=== PATIENT | female | born 2005 | race Two or more races ===

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

== ENCOUNTER 2025-04-08 19:03 | Emergency (ER) | payer MEDICAID ==
[~2025-04-08] VITALS: Ht 147.3 cm; Wt 61.5 kg
[~2025-04-08 19:03] MED LIST changes: +PHEN0.2512 PR
[2025-04-08 19:35] VITALS: TEMP 98.8
[2025-04-08 20:08] LABS: Urine Amorphous Crystal FEW /hpf (None Seen); Urine Protein, UAD Negative (Negative)
[2025-04-08] MEDS ORDERED: DOXY100C79 PO (20:56)
--- NOTE | 2025-04-08 21:03 | ED.PDOC ---
General HPI Comments 20 year old female presents to ER with complaints of vaginal discharge x 2 days. Patient states she started experiencing yellow vaginal discharge with "vaginal irritation" 2 days ago that started 2 days after she had unprotected sex with her ex boyfriend. Denies any pain denies use of medications for current symptoms. Patient presents to ER ambulatory on arrival, steady gait, in no distress and denies any known STD hx for her or her ex boyfriend. Denies fever, body aches, chills, joint pain, rash/skin changes, abdominal/pelvic pain, back/flank pain, changes in urination or any further symptoms/complaints Chief Complaint: Vaginal Discharge Time Seen by MD: 19:18 Primary Care Provider: OOA Reviewed notes: Nurses Notes, Medications, Allergies Allergies: Coded Allergies: Azithromycin (Verified Allergy, Unknown, 02/14/20) Home Meds Active Scripts Doxycycline (Monohydrate) (Doxycycline) 100 Mg Cap, 100 MG PO BID for 7 Days, #14 CAP 0 Refills Prov:MACI COLLINS 04/08/25 Phenylephrine HCl (Topical) (Preparation H) 0.25 % Sup, 0.25 % DC QID PRN, #30 SUPP prn hemorrhoid pain Prov:JENNIFER RAMIREZ MD 12/18/24 Fluconazole (Diflucan) 150 Mg Tab, 1 TAB PO DAILY for 2 Days, #2 TAB 1 Refill Prov:DEBORAH WILDE ELECTROMECHANICAL TECHNOLOGIST 10/27/24 Metronidazole (Flagyl) 500 Mg Tab, 1 TAB PO BID for 7 Days, #14 TAB Prov:DEBORAH WILDEP 10/27/24 Cephalexin Monohydrate (Cephalexin) 500 Mg Cap, 1 CAP PO QID for 5 Days, #20 CAP 0 Refills Prov:KATLYN ZHONG NP 09/28/24 Mupirocin Calcium (Topical) (MUPIROCIN) 2 % Cre, 1 APPLIC EX BID for 7 Days, #30 GRAMS 0 Refills Prov:KATLYN ZHONG NP 09/28/24 Metronidazole (Flagyl) 500 Mg Tab, 1 TAB PO BID, #14 TAB Prov:NATE SALAS 07/18/24 Cephalexin (KEFLEX CAPSULE) 250 Mg Cp, 250 MG PO TID for 7 Days, #21 CAP Prov:HENRIQUE POWELL MD 06/17/24 Information Source: Patient Mode of Arrival: Ambulatory Past Medical History PAST MEDICAL HISTORY: Denies Surgical History: Denies all surgeries FIRER LOCOMOTIVE History: No Pertinent FIRER LOCOMOTIVE History Family History Family History: Unknown Social History Smoker: Non-Smoker Alcohol: Denies ETOH Use Drugs: Denies Drug Use Lives In: Home Constitutional: denies: chills, diaphoresis, fatigue, fever, malaise, sweats, weakness, others EENTM: denies: blurred vision, double vision, ear bleeding, ear discharge, ear drainage, ear pain, ear ringing, eye pain, eye redness, hearing loss, mouth pain, mouth swelling, nasal discharge, nose bleeding, nose congestion, nose pain, photophobia, tearing, throat pain, throat swelling, voice changes, others Respiratory: denies: cough, hemoptysis, orthopnea, SOB at rest, shortness of breath, SOB with excertion, stridor, wheezing, others Cardiovascular: denies: chest pain, dizzy spells, diaphoresis, Dyspnea on exertion, edema, irregular heart beat, left arm pain, lightheadedness, palpitations, PND, syncope, others Gastrointestinal: denies: abdomen distended, abdominal pain, blood streaked bowels, constipated, diarrhea, dysphagia, difficulty swallowing, hematemesis, melena, nausea, poor appetite, poor fluid intake, rectal bleeding, rectal pain, vomiting, others Genitourinary: reports: others (As stated in HPI) Neurological: denies: dizziness, fainting, headache, left sided numbness, left sided weakness, numbness, paresthesia, pre-existing deficit, right sided numbness, right sided weakness, seizure, speech problems, tingling, tremors, weakness, others Musculoskeletal: denies: back pain, gout, joint pain, joint swelling, muscle pain, muscle stiffness, neck pain, others Integumetry: denies: bruises, change in color, change in hair/nails, dryness, laceration, lesions, lumps, rash, wounds, others Allergic/Immunocompromised: denies: Difficulty Healing, Frequent Infections, Hives, Itching, others Hematologic/Lymphatic: denies: anemia, blood clots, easy bleeding, easy bruising, swollen glands, others Endocrine: denies: excessive hunger, excessive sweating, excessive thirst, excessive urination, flushing, intolerance to cold, intolerance to heat, unexplained weight gain, unexplained weight loss, others Psychiatric: denies: anxiety, bipolar disorder, depression, hopeless, panic disorder, schizophrenia, sleepless, suicidal, others Physical Exam General Appearance: No Apparent Distress HEENT: PERRL/EOMI Neck: Full Range of Motion, Non-Tender, Normal Respiratory: Chest Non-Tender, Lungs Clear, No Accessory Muscle Use, No Respiratory Distress, Normal Breath Sounds Cardiovascular: No Murmur, No Gallop, Regular Rate/Rhythm Breast Exam: Deferred Gastrointestinal: Non Tender, No Pulsatile Mass, Soft Genitalia: Deferred Pelvic: Other (Female coat tailor present-no vaginal discharge/skin changes kirti reciated. Unremarkable pelvic examination) Rectal: Deferred Extremities: Normal capillary refill, Normal range of motion Neurologic: Alert, chief security and safety officer II-XII nml as Tested, No Motor Deficits, Normal Affect, Normal Mood, No Sensory Deficits Cerebellar Function: Normal Reflexes: Normal Skin: Dry, Normal Color, Warm Lymphatic: No Adenopathy Was a procedure done? Was a procedure done?: No Sedation Sedation?: No Differential Diagnosis Kidney stone (Female): N/A Urinary Problem (Female): Intrauterine , Pyelonephritis, Urinary retention, Urolithiasis X-Ray, Labs, Meds, VS Vital Signs Date Time Temp Pulse Resp B/P (MAP) Pulse Ox O2 Delivery O2 Flow Rate FiO2 04/08/25 19:35 98.8 76 18 96/64 (75) 99 98.8 Lab Test 04/08/25 20:44 04/08/25 19:46 Range/Units Vaginal WBC (Wet Prep) Rare Vaginal RBC (Wet Prep) None seen Vaginal Epithelial Cells (Wet Prep) Few Vaginal Bacteria (Wet Prep) Few Vaginal Trichomonas (Wet Prep) Not present Vaginal Yeast (Wet Prep) None seen Vaginal Clue Cells (Wet Prep) None seen Urine Color Light-yellow Yellow Urine Clarity Turbid H Clear Urine pH 7.0 5.0-9.0 Urine Specific [place] 1.015 1.001-1.035 Urine Protein Negative Negative Urine Ketones Negative Negative Urine Blood Negative Negative /uL Urine Nitrite Negative Negative Urine Bilirubin Negative Negative Urine Urobilinogen Normal Negative mg/dL Urine Leukocyte Esterase Trace Negative /uL Urine RBC 2 0 - 4 /hpf Urine Microscopic WBC 2 0-5 /HPF Urine Squamous Epithelial Cells Few <5 /hpf Urine Amorphous Crystals Few None Seen /hpf Urine Bacteria None seen None Seen /hpf Urine Glucose Normal Normal mg/dL Urine Test Negative Negative Chlamydia trachomatis ([facility]) Pending Neisseria gonorrhoeae ([facility]) Pending Urinalysis reviewed-urine leukocyte esterase trace, remainder urinalysis reviewed without any significant abnormalities Urine reviewed-negative Wet mount reviewed without any significant abnormalities Rocephin 1 g IM ordered Advised to drink plenty of fluids Safe sex practices discussed and advised Advised to refrain from sexual intercourse for at least 1 week Patient provided information with regards to local public Health Department and was advised for her and her previous sexual partner to follow up as soon as possible for further STD testing Advised to follow up with PCP in 1-2 days Patient verbalized understanding and agreeable with current plan of care Advised to return to ER immediately if symptoms worsen Time of 1ST Reevaluation: 20:24 Reevaluation 1ST: N/A Patient Education/Counseling: Diagnosis, Treatment, Prognosis, Need For Follow Up Family Education/Counseling: No Family Present SEPSIS Sepsis Screen Date sepsis recognized/suspect: Apr 08, 2025 Time Sepsis recognized/suspect: 1934 Recent Procedure: No On Antibiotic Therapy: No Respiratory Rate >20: No Heart Rate >90: No Temp<36 C (96.8 F) or >38.3 C: No SBP <90 or MAP <65 mmHG: No New Acute Mental Status Change: No Is the patient on CPAP, BIPAP,: No Physician Orders Chlamydia/Gc Amplification (04/08/25 19:55) Vital Signs Date Time Temp Pulse Resp B/P (MAP) Pulse Ox O2 Delivery O2 Flow Rate FiO2 04/08/25 19:35 98.8 76 18 96/64 (75) 99 98.8 Departure 1 Departure Time of Disposition: 20:54 Impression: Primary Impression: UTI (urinary tract infection) Qualified Codes: N30.00 - Acute cystitis without hematuria Additional Impression: Possible exposure to STD Disposition: 01 HOME / SELF CARE / HOMELESS Condition: Stable e-Prescriptions Doxycycline (Monohydrate) (Doxycycline) 100 Mg Cap 100 MG PO BID for 7 Days, #14 CAP 0 Refills Prov: MACI COLLINS 04/08/25 Discharged With: Self Critical Care Note Critical Care Time?: No Stability Stability form required: No Heart Score Heart Score: Heart Score Response (Comments) Value History N/A 0 EKG N/A 0 Age N/A 0 Risk Factors N/A 0 Troponin N/A 0 Total 0 MACI COLLINS Apr 08, 2025 21:03
[2025-04-08 21:33] LABS: Vaginal Bacteria Few; Vaginal Trichomonas Not Present
[2025-04-08 21:34] LABS: Vaginal Clue Cells None Seen; Vaginal Epithelial Cells Few
[2025-04-08 22:20] VITALS: BP 121/71; PULSE 76; RESP 18; O2SAT 99
[2025-04-08] MEDS: cefTRIAXone SOD 1,000 MG VL IM ONE (22:26)
[2025-04-11 08:07] LABS: Chlamydia Trachomatis, NAA Negative (Negative); Neisseria gonorrhoeae, NAA Negative (Negative)
== END 2025-04-08 22:25 | disposition home or self-care (01) ==
LOC: ER 19:03
DX: N39.0 Urinary tract infection, site not specified (principal); N89.8 Other specified noninflammatory disorders of vagina; Z88.1 Allergy status to other antibiotic agents
CPT/HCPCS: 81001; 81025; 87210; 87491; 87591; 96372; 99283; J0696